=== PATIENT | male | born 1990 | race Caucasian/White ===

== ENCOUNTER 2016-12-21 01:23 | Emergency (ER) | payer SELFPAY ==
[2016-12-21] MEDS ORDERED: HYDROCORTISONE ACETATE 25 MG SUPP.RECT PR ONE (03:57)
[2016-12-21] MEDS ORDERED: LIDOCAINE 2% JELLY 30 ML TUBE TOP ONE (04:01)
--- NOTE | 2016-12-21 04:08 | ER Document Report ---
HPI - HPI Pain Level: 4 Notes: Patient is a 26-year-old male with a history of Crohn's disease who presents the ED complaining of rectal pain 2 days. Patient states that he has had constant sharp pain to the area without any discharge. Patient states he does have a history of 3 abscesses in that area that needed incision and drained in the past with the most recent being 8 months ago. Patient states that he just moved up to this area from [place]. Patient states he is allergic to penicillins as he develops a rash. He denies any MRSA history. Patient admits to smoking but denies any other illicit drug use. He is still eating and drinking without any difficulties. Patient is having normal bowel movements as well. He has not noticed any melena or hematochezia. Denies any headache, fever, hest pain, palpitations, syncope, cough, shortness of breath, wheeze, dyspnea, abdominal pain, nausea/vomiting/diarrhea, urinary retention, dysuria, hematuria, or rash. - ROS Notes: REVIEW OF SYSTEMS: CONSTITUTIONAL : Denies fever, chills, or sweats. Denies recent illness. EENT: Denies eye, ear, throat, or mouth pain or symptoms. Denies nasal or sinus congestion or discharge. Denies throat, tongue, or mouth swelling or difficulty swallowing. CARDIOVASCULAR: Denies chest pain. Denies palpitations or racing or irregular heart beat. Denies ankle edema. RESPIRATORY: Denies cough, cold, or chest congestion. Denies shortness of breath, difficulty breathing, or wheezing. GASTROINTESTINAL: see hpi GENITOURINARY: Denies difficulty urinating, painful urination, burning, frequency, blood in urine, or discharge. MUSCULOSKELETAL: Denies back or neck pain or stiffness. Denies joint pain or swelling. SKIN: Denies rash, lesions or sores. NEUROLOGICAL: Denies confusion or altered mental status. Denies passing out or loss of consciousness. Denies dizziness or lightheadedness. Denies headache. Denies weakness or paralysis or loss of use of either side. Denies problems with gait or speech. Denies sensory loss, numbness, or tingling. ALL OTHER SYSTEMS REVIEWED AND NEGATIVE. Dictation was performed using [employer] voice recognition software - DERM Skin Color: Normal, [place] Past Medical History - Social History Smoking Status: Current Every Day Smoker Family History: Reviewed & Not Pertinent Renal/ Medical History: Denies: Hx Peritoneal Dialysis Vertical Provider Document - CONSTITUTIONAL Agree With Documented VS: Yes Notes: PHYSICAL EXAMINATION: GENERAL: Well-appearing, well-nourished and in no acute distress. LUNGS: Breath sounds clear to auscultation bilaterally and equal. No wheezes rales or rhonchi. HEART: Regular rate and rhythm without murmurs, rubs, gallops. ABDOMEN: Soft, nontender, nondistended abdomen. No guarding, no rebound. No masses appreciated. Normal bowel sounds present. No CVA tenderness bilaterally. + external hemorrhoid, non-thrombosed. + tenderness. No obvious abscess perirectally or purulent discharge. No streaks. Extremities: No cyanosis, clubbing, or edema b/l. Peripheral pulses 2+. Capillary refill less than 3 seconds. NEUROLOGICAL: Normal speech, normal gait. Normal sensory, motor exams PSYCH: Normal mood, normal affect. SKIN: Warm, Dry, normal turgor, no rashes or lesions noted. - INFECTION CONTROL TRAVEL OUTSIDE OF THE [place] IN LAST 30 DAYS: No - RESPIRATORY O2 Sat by Pulse Oximetry: 98 Course - Re-evaluation Re-evalutation: 12/21/16 04:05 Patient is an afebrile, well-hydrated, 26-year-old male who presents the ED with suspected external nonthrombosed hemorrhoid. Vitals are stable. PE otherwise unremarkable at this time. Anusol given rectally along with Xylocaine. I will send him home with prescription for Anusol as well. Patient to increase fiber intake and water intake. Conservative measures otherwise for symptoms. Recheck with your PCM in 2-3 days. Consider consult with the general surgeon. Return to the ED with any worsening/concerning symptoms otherwise as reviewed discharge. Patient is in agreement. - Vital Signs Vital signs: Temp Pulse Resp BP Pulse Ox 98.4 F 80 16 130/77 H 98 12/21/16 01:52 12/21/16 01:52 12/21/16 01:52 12/21/16 01:52 12/21/16 01:52 Discharge - Discharge Clinical Impression: External hemorrhoids without complication Condition: Stable Disposition: HOME, SELF-CARE Instructions: HC Hemorrhoid Cream ([facility]), Hemorrhoids ([facility]) Additional Instructions: Maintain adequate fluid intake Increase fiber intake Use medications as directed/needed Monitor for any acute changes in symptoms Recheck with your PCM in 2-3 days Consider consult with the general surgeon Return to the ED with any worsening symptoms and/or development of fever, headache, chest pain, palpitations, syncope, shortness of breath, trouble breathing, abdominal pain, n/v/d, blood in stool/urine, abscess, purulent discharge, red streaks, or other worsening symptoms that are concerning to you. Prescriptions: Hydrocortisone Acetate [Anusol Hc 25 mg Supp.rect] 1 supp.rect MD DAILY PRN #[id number] supp.rect PRN Reason: Forms: Elevated Blood Pressure, Smoking Cessation Education Referrals: MIKI ARAYA MD [[facility]] - Follow up in 3-5 days [facility] [Provider Group] - Follow up as needed [facility] [Provider Group] - Follow up as needed [facility] [Provider Group] - Follow up as needed
[2016-12-21] MEDS ORDERED: LIDOCAINE 2% JELLY 30 ML TUBE ONE (04:53)
[2016-12-21 06:23] VITALS: BP 107/62
== END 2016-12-21 05:15 | disposition home or self-care (01) ==
LOC: ER 01:23
DX: K64.5 Perianal venous thrombosis (principal); K50.90 Crohn's disease, unspecified, without complications
CPT/HCPCS: 99283; J3490